=== PATIENT | male | born 1970 | race Two or more races ===

== ENCOUNTER 2024-02-29 21:02 | Inpatient (IN) | payer OTHER ==
[~2024-02-29] VITALS: Ht 175.3 cm; Wt 87.5 kg
[2024-02-29 21:38] LABS: Basophils # (auto) 0 10 ^3/uL (0-0.2); Basophils % (auto) 0.3 % (0.0-2.0); Eosinophils # (auto) 0.2 10 ^3/uL (0-0.8); Eosinophils % (auto) 1.5 % (0.0-7.0); Hematocrit 36.7 % (41.0-53.0); Hemoglobin 12.1 g/dL (13.5-17.5); Lymphocytes # (auto) 1.4 10 ^3/uL (0.4-5.4); Lymphocytes % (auto) 11.9 % (10.0-50.0); Mean Corpuscular Hemoglobin 28.9 pg (28.0-32.0); Mean Corpuscular Hgb Conc. 32.9 g/dL (32.0-36.0); Mean Corpuscular Volume 87.8 fL (80.0-100.0); Monocytes # (auto) 0.7 10 ^3/uL (0-1.3); Neutrophils # (auto) 9.6 10 ^3/uL (1.6-8.6); Neutrophils % (auto) 80.3 % (37.0-80.0); Red Blood Cells 4.18 10^6/uL (4.5-5.90); White Blood Cell 11.9 10^3/uL (4.4-10.8)
[2024-02-29 21:45] LABS: Chloride 108 mmol/L (98-107); Potassium 3.8 mmol/L (3.5-5.1); Sodium 137 mmol/L (136-145)
[2024-02-29 21:46] LABS: Anion Gap 5 (5-15); Calcium 9.7 mg/dL (8.5-10.1); Carbon Dioxide 24 mmol/L (20-30)
[2024-02-29 21:51] LABS: BUN/Creatinine Ratio 13.7 (10.0-20.0); Blood Urea Nitrogen 13 mg/dL (9-23); Glucose 124 mg/dL (74-106); Magnesium 1.9 mg/dL (1.6-2.6)
[2024-02-29 22:18] VITALS: PULSE 67; RESP 25; O2SAT 98
[2024-02-29] MEDS: SODIUM CHLORIDE 0.9% 500 ML IV ONE (22:25)
[2024-03-01] VITALS (12 sets, daily range): BP systolic 66–151; BP diastolic 38–90; PULSE 64–74; RESP 12–20; TEMP 98.1–98.9; O2SAT 96–98
[2024-03-01 02:36] LABS: Urine Bacteria None Seen /hpf (None Seen)
[2024-03-01 03:03] LABS: Urine Amorphous Crystal FEW /hpf (None Seen); Urine Blood 1+ /uL (Negative); Urine Clarity Turbid (Clear); Urine Color Yellow (Yellow); Urine Mucus FEW (None Seen); Urine Protein, UAD TRACE (Negative); Urine Specific Gravity 1.022 (1.001-1.035); Urine Urobilinogen 6 mg/dL (Negative); Urine WBC 15 /hpf (0 - 3)
[2024-03-01] MEDS ORDERED: NITROGLYCERIN 0.4 MG SL TAB SL PRN (03:30)
[2024-03-01] MEDS ORDERED: ACETAMINOPHEN 325 MG TAB PO PRN (03:30)
[2024-03-01] MEDS ORDERED: ONDANSETRON HCL 4 MG/2 ML VIAL IV PRN (03:30)
[2024-03-01] MEDS ORDERED: MORPHINE SULFATE INJ 2 MG/ml SYRG IV PRN (03:30)
[2024-03-01] MEDS ORDERED: OMEP20TA PO (07:20)
[2024-03-01] MEDS ORDERED: FAMO-12 PO (07:20)
[2024-03-01] MEDS ORDERED: FINA5TAB4 PO (07:20)
[2024-03-01] MEDS ORDERED: METO1TAB9 PO (07:20)
[2024-03-01] MEDS ORDERED: TRAZ-227 PO (07:20)
[2024-03-01] MEDS ORDERED: MID10T PO (07:20)
[2024-03-01] MEDS ORDERED: ROSU20TA56 PO (07:20)
[2024-03-01] MEDS: ENOXAPARIN SOD 40 MG/0.4 ML SYRINGE SC SCH (09:36)
[2024-03-01] MEDS: ASPirin 81 mg TAB PO SCH (09:36)
[2024-03-01] MEDS: MIDODRINE HCL 10 MG TAB PO ONE (11:22)
[2024-03-01] MEDS: SODIUM CHLORIDE 0.9% 1,000 ML IV SCH (12:30)
[2024-03-01] MEDS: cefTRIAXone 1GM/50ML D5W 50 ML IV ONE (12:30)
[2024-03-01] MEDS: MIDODRINE HCL 10 MG TAB PO SCH (17:34)
[2024-03-02] VITALS (8 sets, daily range): BP systolic 76–162; BP diastolic 48–95; PULSE 61–86; RESP 12–20; TEMP 98–98.7; O2SAT 96–99
[2024-03-02 06:09] LABS: Basophils # (auto) 0 10 ^3/uL (0-0.2); Basophils % (auto) 0.4 % (0.0-2.0); Eosinophils # (auto) 0.3 10 ^3/uL (0-0.8); Eosinophils % (auto) 3.2 % (0.0-7.0); Hematocrit 35.8 % (41.0-53.0); Hemoglobin 11.9 g/dL (13.5-17.5); Lymphocytes # (auto) 2.2 10 ^3/uL (0.4-5.4); Lymphocytes % (auto) 27.6 % (10.0-50.0); Mean Corpuscular Hemoglobin 29.4 pg (28.0-32.0); Mean Corpuscular Hgb Conc. 33.1 g/dL (32.0-36.0); Mean Corpuscular Volume 88.8 fL (80.0-100.0); Monocytes # (auto) 0.7 10 ^3/uL (0-1.3); Monocytes % (auto) 9.2 % (0.0-12.0); Neutrophils # (auto) 4.8 10 ^3/uL (1.6-8.6); Neutrophils % (auto) 59.6 % (37.0-80.0); Red Blood Cells 4.03 10^6/uL (4.5-5.90); Red Cell Distribution Width 13.1 % (11.8-14.3); White Blood Cell 8.1 10^3/uL (4.4-10.8)
[2024-03-02 06:15] LABS: Chloride 108 mmol/L (98-107); Potassium 3.8 mmol/L (3.5-5.1); Sodium 140 mmol/L (136-145)
[2024-03-02 06:16] LABS: Anion Gap 7 (5-15); Calcium 9.1 mg/dL (8.5-10.1); Carbon Dioxide 25 mmol/L (20-30)
[2024-03-02 06:21] LABS: BUN/Creatinine Ratio 8.2 (10.0-20.0); Blood Urea Nitrogen 7 mg/dL (9-23); Glucose 141 mg/dL (74-106)
[2024-03-02] MEDS: cefTRIAXone 1GM/50ML D5W 50 ML IV SCH (09:09)
[2024-03-02] MEDS: FLUDROCORTISONE ACETATE 0.1 MG TAB PO SCH (09:46)
[2024-03-02] MEDS ORDERED: FLU01T PO (11:49)
[2024-03-02] MEDS ORDERED: METOPROLOL SUCCINATE XL 50 MG TAB PO ONE (12:30)
[2024-03-02] MEDS: SODIUM CHLORIDE 0.9% 1,000 ML IV ONE (14:29)
[2024-03-02] MEDS: METOPROLOL TARTRATE 50 MG TAB PO ONE (14:29)
[2024-03-02] MEDS: METOPROLOL TARTRATE 50 MG TAB PO SCH (21:44)
[2024-03-02] MEDS ORDERED: METOPROLOL SUCCINATE XL 50 MG TAB PO SCH (22:00)
[2024-03-03] VITALS (7 sets, daily range): BP systolic 96–155; BP diastolic 53–94; PULSE 60–76; RESP 16–20; TEMP 97.9–98.8; O2SAT 94–99
[2024-03-03] MEDS ORDERED: CIPR-273 PO (13:06)
[2024-03-03] MEDS ORDERED: MIDO10TA3 PO (13:06)
[2024-03-03] MEDS ORDERED: METO1TAB9 PO (13:06)
== END 2024-03-03 13:50 | disposition home or self-care (01) | DRG 872 ==
LOC: EDBD 21:02 → ER 21:02 → TELE 03-01 03:24 → TELE-CENTR 03-01 06:15
PROVIDERS: ADMIT Nurse Practitioner; ATTEND Internal Medicine Geriatric Medicine
DX: A41.9 Sepsis, unspecified organism (principal); N39.0 Urinary tract infection, site not specified; I95.1 Orthostatic hypotension; I10 Essential (primary) hypertension; N40.0 Benign prostatic hyperplasia without lower urinary tract symptoms; K21.9 Gastro-esophageal reflux disease without esophagitis; Z95.810 Presence of automatic (implantable) cardiac defibrillator; Z83.3 Family history of diabetes mellitus; Z79.899 Other long term (current) drug therapy; E86.0 Dehydration
CPT/HCPCS: 36415; 70450; 71045; 74176; 80048; 81001; 82533; 83735; 84443; 84484; 85025; 85379; 87081; 87086; 93005; 93306; 93886; 99291; G0378